=== PATIENT | female | born 1970 | race Caucasian/White ===

== ENCOUNTER 2022-12-16 06:41 | Outpatient (CLI) | payer BC, SELFPAY ==
[2022-12-16 07:25] VITALS: BP 129/107; PULSE 66; RESP 16; O2SAT 98
== END 2022-12-16 08:25 | disposition home or self-care (01) ==
LOC: US 06:42
PROVIDERS: PCP Family Medicine; Visit Provider Family Medicine
DX: M76.01 Gluteal tendinitis, right hip (principal); M67.951 Unspecified disorder of synovium and tendon, right thigh; M76.899 Other specified enthesopathies of unspecified lower limb, excluding foot; S73.191S Other sprain of right hip, sequela
CPT/HCPCS: 76942; J0665